=== PATIENT | female | born 1985 | race Caucasian/White ===

== ENCOUNTER 2016-09-29 12:38 | Emergency (ER) | payer BC ==
[~2016-09-29] VITALS: Ht 167.6 cm; Wt 61.2 kg
[~2016-09-29 12:38] MED LIST: ABILIFY5 MG ORAL; ALBUTEROL SULF8.5 GM INH; ALBUTEROL2.5 MG/3 M INH; AMOXICILLIN500 MG ORAL; AZITHROMYCIN250 MG ORAL; BACITRACIN15 GM TOPIC; BACTRIM10 ML PO; BIAXIN500 MG ORAL; CEPHALEXIN500 MG ORAL; CIPRO500 MG PO; DIFLUCAN100 MG ORAL; DIPHENHYDRAMINE25 M1 ORAL; ENEMA TWIN PAC133 ML RC; GABAPENTIN300 MG ORAL; IBUPROFEN600 MG ORAL; KEFLEX500 MG ORAL; LEVOFLOXACIN500 MG ORAL; MACROBID100 MG ORAL; MILK OF MA400 MG/51 ORAL; NAPROSYN500 M1 ORAL; NORCO 5-325 TA1 EACH ORAL; PAROXETINE HCL20 MG PO; PREDNISONE20 MG ORAL; PROAIR HFA8.5 GM INH; PROPRANOLOL HCL80 M2 PO; QUETIAPINE FUM200 MG ORAL; TOPIRAMATE100 MG ORAL; VYVANSE50 MG ORAL; WELLBUTRIN75 MG ORAL; ZITHROMAX250 MG ORAL; ZOFRAN4 M1 ORAL
[2016-09-29 12:43] VITALS: BP 113/69
[2016-09-29] MEDS ORDERED: Albuterol ud Inhalation HHN ONE (13:00)
[2016-09-29] MEDS ORDERED: Ipratropium 0.02% Inh Soln 2.5ml UD HHN ONE (13:00)
--- NOTE | 2016-09-29 13:04 | Emergency Room Report ---
History of Present Illness General Chief Complaint: Flu Like Symptoms Source: Patient (STEPHANIE VENTURA) Present Illness HPI The patient is a 31-year-old female who has medical history presenting for subjective fevers, cough, and wheezing which began 5 days prior. The patient was seen by urgent care on the day the symptoms began and was prescribed prednisone and a Z-Mehdi which the patient states did not help. The patient was also tested for strep throat at that time which was negative. Pt denies N, V, rash, night sweats, recent travel (STEPHANIE VENTURA.Tabitha) Allergies: Coded Allergies: No Known Allergies (Unverified , 01/07/14) Patient History Past Medical History: see triage record Pertinent Family History: none Last Menstrual Period: 09/10/2016 Now: No Reviewed Nursing Documentation: PMH: Agreed, PSxH: Agreed (STEPHANIE VENTURA) Nursing Documentation-PMH Past Medical History: No History, Except For Hx Cardiac Problems: Yes - SVT Hx Asthma: Yes History Of Psychiatric Problem: Yes - depression, PTSD Hx Neurological Problems: No (STEPHANIE VENTURA P.AMushtaq) Review of Systems All Other Systems: negative except mentioned in HPI (STEPHANIE VENTURA.Tabitha) Physical Exam Vital Signs Date Time Temp Pulse Resp B/P Pulse Ox O2 Delivery O2 Flow Rate FiO2 09/29/16 12:43 98.2 87 18 113/69 95 Room Air Sp02 EP Interpretation: reviewed, normal General Appearance: no apparent distress, alert, GCS 15, non-toxic Head: normocephalic, atraumatic Eyes: bilateral eye PERRL, bilateral eye normal inspection ENT: hearing grossly normal, normal pharynx, no angioedema, normal voice, TMs + canals normal, uvula midline, moist mucus membranes Neck: full range of motion, supple/symm/no masses Respiratory: chest non-tender, no respiratory distress, speaking full sentences , wheezing - diffuse Cardiovascular #1: regular rate, rhythm, no edema Cardiovascular #2: 2+ carotid (R), 2+ carotid (L), 2+ radial (R), 2+ radial (L) , 2+ dorsalis pedis (R), 2+ dorsalis pedis (L) Gastrointestinal: normal bowel sounds, non tender, soft, non-distended, no guarding, no rebound Rectal: deferred Genitourinary: normal inspection, no CVA tenderness Musculoskeletal: back normal, gait/station normal, normal range of motion, non- tender Neurologic: alert, oriented x3, responsive, motor strength/tone normal, sensory intact, speech normal Psychiatric: judgement/insight normal, memory normal, mood/affect normal, no suicidal/homicidal ideation Reflexes: 3+ bicep (R), 3+ bicep (L), 3+ tricep (R), 3+ tricep (L), 3+ knee (R) , 3+ knee (L) Skin: normal color, no rash, warm/dry, well hydrated Lymphatic: no adenopathy (STEPHANIE VENTURA P.A.) Medical Decision Making PA Attestation Dr. Almonte is my supervising physician. Patient management was discussed with my supervising physician (STEPHANIE VENTURA PMushtaqAMushtaq) Diagnostic Impression: Primary Impression: Bronchitis ER Course The patient is a 31-year-old female who has medical history presenting for subjective fevers, cough, and wheezing which began 5 days prior. Differential diagnosis include but not limited to bronchitis, pharyngitis, sinusitis, pneumonia, rhinitis PE: Vitals WNL. NAD. HEENT exam is unremarkable. Tonsils have been removed. Uvula midline. No cervical lymphadenopathy. Lungs: Diffuse bilateral wheezing The patient was given a breathing treatment and states that she is feeling better. Lung sounds have increased. CXR is unremarkable. The patient will be discharged home with a prescription for cough medication, albuterol, and a five-day course of steroids. ER precautions are given (STEPHANIE VENTURA P.A.) ER Course Scribe documentation reviewed by me and is accurate. (Rodolfo Almonte M.D.) Chest X-Ray Diagnostic Results EP Interpretation: Yes Findings: no consolidation, no effusion, no pneumothorax, no acute cardiopulmonary disease Number of Views: 1 PA Scribe Text I am acting as scribe for my supervising physician. My supervising physician's interpretation of the chest xrays are there is no consolidation, no effusion, no acute cardiopulmonary disease, no pneumothorax (STEPHANIE VENTURA P.A.) Last Vital Signs Date Time Temp Pulse Resp B/P Pulse Ox O2 Delivery O2 Flow Rate FiO2 09/29/16 12:55 88 16 Room Air 09/29/16 12:43 98.2 113/69 95 Status: improved (STEPHANIE VENTURA P.A.) Disposition: HOME, SELF-CARE Condition: Improved Scripts Albuterol Sulfate* (PROAIR HFA*) 8.5 Gm Hfa.aer.ad 2 PUFFS INH Q6H, #8.5 GM 0 Refills Prov: STEPHANIE VENTURA P.A. 09/29/16 Prednisone (Prednisone) 20 Mg Tablet 20 MG PO DAILY for 5 Days, #5 TAB Prov: TERLISAANSTEPHANIE P.A. 09/29/16 Guaifenesin/Dextromethorphan (Robitussin Cough-Chest Dm Liq) 118 Ml Liquid 118 ML PO Q4HR, #118 ML Prov: STEPHANIE VENTURA P.A. 09/29/16 STEPHANIE VENTURA P.A. Sep 29, 2016 13:04 Rodolfo Almonte M.D. Oct 05, 2016 15:35
--- NOTE | 2016-09-29 14:02 | Diagnostic Imaging Report ---
Indication: Cough Comparison: 09/22/14 A single view chest radiograph was obtained. Findings: Cardiomediastinal appearance is within normal limits for age. Pulmonary vascularity is appropriate. The diaphragmatic contour is smooth and costophrenic angles are sharp. No pleural effusions are identified. The bones are unremarkable. Impression: No acute findings
[2016-09-29] MEDS ORDERED: PROAIR HFA8.5 GM INH (14:03)
[2016-09-29] MEDS ORDERED: ROBITUSSIN COU118 M4 PO (14:03)
[2016-09-29] MEDS ORDERED: PREDNISONE20 M1 PO (14:03)
[2016-09-29 14:15] VITALS: BP 112/72
== END 2016-09-29 14:14 | disposition home or self-care (01) ==
LOC: EMR 14:05
DX: J45.909 Unspecified asthma, uncomplicated (principal)
CPT/HCPCS: 71010; 94640; 94664; 99283

== ENCOUNTER 2016-10-03 12:59 | Emergency (ER) | payer BC ==
[~2016-10-03] VITALS: Ht 167.6 cm; Wt 61.2 kg
[~2016-10-03 12:59] MED LIST changes: +PREDNISONE20 M1 PO; +ROBITUSSIN COU118 M4 PO
[2016-10-03] MEDS ORDERED: AMOXICILLIN500 MG ORAL (13:39)
[2016-10-03] MEDS ORDERED: PSEUDOEPHEDRINE60 MG PO (13:39)
[2016-10-03 13:54] VITALS: BP 99/63
[2016-10-03 13:56] VITALS: BP 99/63
--- NOTE | 2016-10-03 15:33 | Emergency Room Report ---
History of Present Illness General Chief Complaint: Upper Respiratory Illness Source: Patient Present Illness HPI The patient is a 31-year-old female who denies any medical history presenting for 2 weeks of productive cough, sore throat, and subjective fever. Pt denies any pain. The patient states that she was seen for these symptoms before and was treated with steroids and a Z-Mehdi which have not helped. Pt denies N, V, night sweats, abd pain, CARVAJAL, neck stiffness, rash Allergies: Coded Allergies: No Known Allergies (Unverified , 01/07/14) Patient History Past Medical History: see triage record Pertinent Family History: none Last Menstrual Period: 09/05/16 Now: No Reviewed Nursing Documentation: PMH: Agreed, PSxH: Agreed Nursing Documentation-PMH Past Medical History: No History, Except For Hx Cardiac Problems: Yes - SVT Hx Asthma: Yes Hx Neurological Problems: No Review of Systems All Other Systems: negative except mentioned in HPI Physical Exam Vital Signs Date Time Temp Pulse Resp B/P Pulse Ox O2 Delivery O2 Flow Rate FiO2 10/03/16 13:14 98.1 75 16 99/63 97 Room Air Sp02 EP Interpretation: reviewed, normal General Appearance: no apparent distress, alert, GCS 15, non-toxic Head: normocephalic, atraumatic Eyes: bilateral eye PERRL, bilateral eye normal inspection ENT: hearing grossly normal, no angioedema, normal voice, TMs + canals normal, uvula midline, moist mucus membranes, tonsillar swelling, pharyngeal erythema Neck: full range of motion, supple, supple/symm/no masses Respiratory: chest non-tender, lungs clear, normal breath sounds, speaking full sentences Cardiovascular #1: regular rate, rhythm, no edema Gastrointestinal: normal bowel sounds, non tender, soft, non-distended, no guarding, no rebound Musculoskeletal: back normal, gait/station normal, normal range of motion, non- tender Neurologic: alert, oriented x3, responsive, motor strength/tone normal, sensory intact, speech normal Psychiatric: judgement/insight normal, memory normal, mood/affect normal, no suicidal/homicidal ideation Skin: normal color, no rash, warm/dry, well hydrated Lymphatic: adenopathy - cervical Medical Decision Making PA Attestation Dr. Plunkett is my supervising physician. Patient management was discussed with my supervising physician Diagnostic Impression: Primary Impression: Pharyngitis, acute ER Course The patient is a 31-year-old female who denies any medical history presenting for 2 weeks of productive cough, sore throat, and subjective fever. Differential diagnosis include but not limited to bronchitis, pharyngitis, sinusitis, pneumonia, rhinitis PE: Afebrile. NAD. HEENT: There is bilateral tonsillar edema and oral pharyngeal erythema. Positive cervical lymphadenopathy. There is nasal congestion noted Otherwise exam unremarkable. The patient will be discharged home with a prescription for amoxicillin and Sudafed. ER precautions are given Last Vital Signs Date Time Temp Pulse Resp B/P Pulse Ox O2 Delivery O2 Flow Rate FiO2 10/03/16 13:56 98.1 65 16 99/63 97 Room Air Status: improved Disposition: HOME, SELF-CARE Condition: Improved Scripts Pseudoephedrine Hcl* (SUDAFED*) 60 Mg Tablet 60 MG PO Q6H, #20 TAB Prov: STEPHANIE VENTURA P.A. 10/03/16 Amoxicillin* (AMOXIL*) 500 Mg Capsule 500 MG ORAL Q12HR, #20 CAP Prov: STEPHANIE VENTURA P.A. 10/03/16 Patient Instructions: Upper Respiratory Infection, Adult Additional Instructions: I discussed my findings with the patient. All questions and concerns have been answered. Treatment and medication compliance have been addressed. I advised the patient that they need to follow up with PMD in 3-5 days. Return to ED if pain remains or worsens, cough worsens or remains, you notice blood in your sputum, you notice wheezing, you experience a fever, or if needed for any reason. Patient verbalized understanding of discharge instructions. STEPHANIE VENTURA Oct 03, 2016 15:33
== END 2016-10-03 13:56 | disposition home or self-care (01) ==
LOC: EMR 13:30
DX: J02.9 Acute pharyngitis, unspecified (principal); J45.909 Unspecified asthma, uncomplicated
CPT/HCPCS: 99284

== ENCOUNTER 2016-10-26 20:34 | Emergency (ER) | payer BC ==
[~2016-10-26] VITALS: Ht 167.6 cm; Wt 61.2 kg
[~2016-10-26 20:34] MED LIST changes: +PSEUDOEPHEDRINE60 MG PO
[2016-10-26 21:15] VITALS: BP 107/70
[2016-10-26] MEDS ORDERED: BUPROPION XL300 MG ORAL (21:18)
--- NOTE | 2016-10-30 13:15 | Emergency Room Report ---
History of Present Illness General Chief Complaint: Medication Refill Source: Patient Present Illness HPI Patient is a 31-year-old female presented for a medication refill. Patient had recently run out of her medications. Patient had been taking Wellbutrin. She reports having a appointment with her physician in the next few days. Patient stated that she needed prescription for some of this medication. She denied any . She denied other complaints. Allergies: Coded Allergies: No Known Allergies (Unverified , 01/07/14) Patient History Past Medical History: see triage record Last Menstrual Period: Sep Reviewed Nursing Documentation: PMH: Agreed, PSxH: Agreed Nursing Documentation-PMH Hx Cardiac Problems: Yes - SVT Hx Asthma: Yes History Of Psychiatric Problem: Yes Hx Neurological Problems: No Review of Systems All Other Systems: negative except mentioned in HPI Physical Exam Vital Signs Date Time Temp Pulse Resp B/P Pulse Ox O2 Delivery O2 Flow Rate FiO2 10/26/16 20:54 97.9 75 16 107/70 96 Room Air General Appearance: well appearing, no apparent distress, alert, GCS 15 Head: normocephalic, atraumatic ENT: hearing grossly normal, normal voice Neck: full range of motion, supple Respiratory: no respiratory distress, speaking full sentences Gastrointestinal: normal inspection Musculoskeletal: no calf tenderness Neurologic: normal inspection, alert, oriented x3, responsive, 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 The patient was given prescription for her Wellbutrin.The patient is advised to follow up with primary care doctor for further medications. Patient is advised to return if any worsening condition or if any changes in status that are concerning. Last Vital Signs Date Time Temp Pulse Resp B/P Pulse Ox O2 Delivery O2 Flow Rate FiO2 10/26/16 21:15 97.9 87 16 107/70 96 Room Air Status: improved Disposition: HOME, SELF-CARE Condition: Stable Scripts Bupropion Hcl* (WELLBUTRIN*) 300 Mg Tab.er.24h 300 MG ORAL DAILY, #14 TAB 0 Refills Prov: Rogelio Plunkett 10/26/16 Referrals: NON PHYSICIAN (PCP) Patient Instructions: Medicine Refill at the Emergency Department Rogelio Plunkett Oct 30, 2016 13:15
== END 2016-10-26 21:30 | disposition home or self-care (01) ==
LOC: EMR 21:20
DX: Z76.0 Encounter for issue of repeat prescription (principal); Z87.09 Personal history of other diseases of the respiratory system
CPT/HCPCS: 99283

== ENCOUNTER 2017-02-15 09:27 | Emergency (ER) | payer BC ==
[~2017-02-15] VITALS: Ht 167.6 cm; Wt 61.2 kg
[~2017-02-15 09:27] MED LIST changes: +BUPROPION XL300 MG ORAL
[2017-02-15 09:40] VITALS: BP 121/78
--- NOTE | 2017-02-15 09:56 | Emergency Room Report ---
History of Present Illness General Chief Complaint: Pain Source: Patient Present Illness HPI [id number] presents with 3 days right shoulder pain after wrestling with friend's child. C/o pain to entire shoulder joint. Reduced ROM d/t pain but ROM is otherwise intact. No previous shoulder dislocation. 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 Took ibuprofen last night with some improvement. Allergies: Coded Allergies: No Known Allergies (Unverified , 01/07/14) Patient History Past Medical History: none Past Surgical History: none Pertinent Family History: none Social History: Denies: alcohol use, drug use, smoking Last Menstrual Period: 01/20/17 Now: No : 0 Para: 0 Immunizations: UTD Reviewed Nursing Documentation: PMH: Agreed, PSxH: Agreed Nursing Documentation-PMH Past Medical History: No History, Except For Hx Cardiac Problems: Yes - SVT Hx Asthma: Yes Hx Neurological Problems: No Review of Systems All Other Systems: negative except mentioned in HPI Physical Exam Vital Signs Date Time Temp Pulse Resp B/P Pulse Ox O2 Delivery O2 Flow Rate FiO2 02/15/17 09:40 98.1 80 18 121/78 100 Room Air Sp02 EP Interpretation: reviewed, normal General Appearance: normal inspection, well appearing, no apparent distress, alert, GCS 15, non-toxic Head: normocephalic, atraumatic Eyes: bilateral eye EOMI, bilateral eye PERRL ENT: normal ENT inspection, hearing grossly normal, normal voice Neck: normal inspection, full range of motion, supple, no bony tend Respiratory: normal inspection, lungs clear, normal breath sounds, no rhonchi, no respiratory distress, no retraction, no accessory muscle use, no wheezing Cardiovascular #1: regular rate, rhythm, no edema Gastrointestinal: normal inspection, normal bowel sounds, non tender, soft, no guarding, no hernia Genitourinary: no CVA tenderness Musculoskeletal: normal inspection, back normal, normal range of motion, Cesia' s Sign negative, other - Right shoulder: mild ttp distal clavicle and shoulder joint in general. No actual point ttp. 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, motor strength/tone normal, speech normal Psychiatric: normal inspection, judgement/insight normal, mood/affect normal Skin: normal inspection, normal color, no rash Lymphatic: normal inspection Medical Decision Making Diagnostic Impression: Primary Impression: Right shoulder pain Qualified Codes: M25.511 - Pain in right shoulder ER Course No dislocation or fracture Likely soft tissue injury vs bruise No obious clinical tendon involvement Rx provided PMD referral for Ortho if no improvement Other X-Ray Diagnostic Results Other X-Ray Diagnostic Results : X-Ray Ordered: right shoulder EP Interpretation: Yes Findings: no fractures, no dislocation, no soft tissue swelling Number of Views: 3 Last Vital Signs Date Time Temp Pulse Resp B/P Pulse Ox O2 Delivery O2 Flow Rate FiO2 02/15/17 09:40 98.0 80 18 121/78 100 Room Air Status: improved Disposition: HOME, SELF-CARE Scripts Methocarbamol* (ROBAXIN-750*) 750 Mg Tablet 750 MG PO TID for For Pain for 7 Days, #30 TAB 0 Refills Prov: AUDI ANDERSON M.D. 02/15/17 Ibuprofen* (MOTRIN*) 600 Mg Tablet 600 MG ORAL THREE TIMES A DAY for For Pain for 7 Days, #30 TAB 0 Refills Prov: AUDI ANDERSON M.D. 02/15/17 AUDI ANDERSON M.D. February 15, 2017 09:56
[2017-02-15] MEDS ORDERED: Ketorolac 60mg Inj IM ONE (10:00)
[2017-02-15] MEDS ORDERED: ROBAXIN-750750 MG PO (10:17)
[2017-02-15] MEDS ORDERED: IBUPROFEN600 MG ORAL (10:17)
[2017-02-15 10:40] VITALS: BP 124/84
--- NOTE | 2017-02-15 10:56 | Diagnostic Imaging Report ---
Indication: PAIN, status post fall Technique: 3 views of the right shoulder Comparison: none Findings: No acute fractures. No dislocations. The joint spaces are preserved Impression:Negative
== END 2017-02-15 10:42 | disposition home or self-care (01) ==
LOC: EMR 10:18
DX: M25.511 Pain in right shoulder (principal); J45.909 Unspecified asthma, uncomplicated
CPT/HCPCS: 96372; 99284

== ENCOUNTER 2017-03-11 14:05 | Emergency (ER) | payer BC ==
[~2017-03-11] VITALS: Ht 182.9 cm; Wt 61.2 kg
[~2017-03-11 14:05] MED LIST changes: +ROBAXIN-750750 MG PO
[2017-03-11 14:33] VITALS: BP 101/5
[2017-03-11] MEDS ORDERED: GABAPENTIN600 MG ORAL (15:13)
[2017-03-11] MEDS ORDERED: TOPAMAX25 MG ORAL (15:13)
[2017-03-11] MEDS ORDERED: BUPROPION XL300 MG ORAL (15:13)
[2017-03-11] MEDS ORDERED: PAXIL CR37.5 MG ORAL (15:13)
[2017-03-11 15:29] VITALS: BP 101/5
--- NOTE | 2017-03-11 16:58 | Emergency Room Report ---
History of Present Illness General Chief Complaint: Medication Refill Present Illness HPI 31-year-old female presents emergency department requesting medication refill. Patient states she was unable to obtain refill appointment with her doctor until March 31. Patient states she has a history of PTSD, depression, drug use and other psychiatric condition. Patient states she previously was taken off Abilify and has been on Paxil, gabapentin x2 years and Wellbutrin with Topamax times over 4 years. Patient states ultimately her: The to DC all medications and she wants to titrate down. Patient denies recent drug use she denies SI or HI. Patient denies history of siobhan or recent panic/anxiety attacks. Patient denies previous suicide attempts. 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 denies rashes, abdominal pain, or . Denies CP, Palpitations, LOC, AMS, dizziness, Changes in Vision, Sensation, paresthesias, or a sudden severe headache. Allergies: Coded Allergies: No Known Allergies (Unverified , 01/07/14) Patient History Past Medical History: see triage record Past Surgical History: none Pertinent Family History: none Last Menstrual Period: 02/14/17 Now: No Reviewed Nursing Documentation: PMH: Agreed, PSxH: Agreed Nursing Documentation-PMH Hx Cardiac Problems: Yes - SVT Hx Asthma: Yes History Of Psychiatric Problem: Yes - Depression; PTSD Hx Neurological Problems: No Review of Systems All Other Systems: negative except mentioned in HPI Physical Exam Vital Signs Date Time Temp Pulse Resp B/P Pulse Ox O2 Delivery O2 Flow Rate FiO2 03/11/17 14:21 62 16 101/5 97 Room Air Sp02 EP Interpretation: reviewed, normal General Appearance: no apparent distress, alert, GCS 15, non-toxic Head: normocephalic, atraumatic Eyes: bilateral eye PERRL, bilateral eye normal inspection ENT: hearing grossly normal, normal pharynx, no angioedema, normal voice Neck: full range of motion, supple/symm/no masses Respiratory: lungs clear, normal breath sounds, speaking full sentences Cardiovascular #1: regular rate, rhythm, no edema Musculoskeletal: back normal, gait/station normal, normal range of motion, non- tender Neurologic: alert, oriented x3, responsive, motor strength/tone normal, sensory intact, speech normal Psychiatric: judgement/insight normal, memory normal, mood/affect normal, no suicidal/homicidal ideation, no delusions Skin: normal color, no rash, warm/dry, well hydrated Lymphatic: no adenopathy Medical Decision Making PA Attestation Dr. alves is my supervising Physician whom patient management has been discussed with. Diagnostic Impression: Primary Impression: Encounter for medication refill ER Course 31-year-old female presents emergency department requesting medication refill. Patient states she was unable to obtain refill appointment with her doctor until March 31. Patient states she has a history of PTSD, depression, drug use and other psychiatric condition. Patient states she previously was taken off Abilify and has been on Paxil, gabapentin x2 years and Wellbutrin with Topamax times over 4 years. Patient states ultimately her: The to DC all medications and she wants to titrate down. Patient denies recent drug use she denies SI or HI. Patient denies history of siobhan or recent panic/anxiety attacks. Patient denies previous suicide attempts. 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 denies rashes, abdominal pain, or . Ddx considered but are not limited to: drug seeking, OD, manic episode Vital signs: are WNL, pt. is afebrile H&PE are most consistent with need for medication refill. ORDERS: none required at this time, the diagnosis is clinical ED INTERVENTIONS: - Review of medications with patient in addition to plan to decrease the dosage of gabapentin. Discussed with patient that to the medication she is requesting have been known to be abusable and I am limiting the clonidine which I will prescribe. Also discussed with patient about [facility] and not she can be evaluated and have psychiatric medication management performed there. Discussed with patient that that is the more appropriate facility for medication refills as they specialize in psychiatric conditions, and are easily accessible. DISCHARGE: At this time pt. is stable for d/c to home. Will provide printed patient care instructions, and any necessary prescriptions. Care plan and follow up instructions have been discussed with the patient prior to discharge. Last Vital Signs Date Time Temp Pulse Resp B/P Pulse Ox O2 Delivery O2 Flow Rate FiO2 03/11/17 15:29 16 101/5 97 Room Air 03/11/17 14:21 62 Disposition: HOME, SELF-CARE Condition: Stable Scripts Paroxetine Hcl (PAXIL CR) 37.5 Mg Tab.er.24h 37.5 MG ORAL DAILY for 21 Days, #21 TAB 0 Refills Prov: Gita Dunaway 03/11/17 Topiramate* (TOPAMAX*) 25 Mg Tablet 50 MG ORAL DAILY for 21 Days, #42 TAB Prov: Gita Dunaway 03/11/17 Gabapentin* (GABAPENTIN*) 600 Mg Tablet 600 MG ORAL BID for 21 Days, #42 TAB Prov: Gita Dunaway 03/11/17 Bupropion Hcl* (WELLBUTRIN*) 300 Mg Tab.er.24h 300 MG ORAL DAILY for 21 Days, #21 TAB 0 Refills Prov: Gita Dunaway 03/11/17 Referrals: NON PHYSICIAN (PCP) Patient Instructions: Medicine Refill at the Emergency Department Additional Instructions: Take medications as directed. Follow up with PCP in 3-5 days Return sooner to ED if new symptoms occur, or current symptoms become worse. review [facility] info for follow up - Please note that this Emergency Department Report was dictated using [employer] man technology software, occasionally this can lead to erroneous entry secondary to interpretation by the dictation equipment. Gita Dunaway Mar 11, 2017 16:58
== END 2017-03-11 15:30 | disposition home or self-care (01) ==
LOC: EMR 15:06
DX: Z76.0 Encounter for issue of repeat prescription (principal); F43.10 Post-traumatic stress disorder, unspecified; F32.9 Major depressive disorder, single episode, unspecified; J45.909 Unspecified asthma, uncomplicated
CPT/HCPCS: 99284

== ENCOUNTER 2017-11-01 01:05 | Emergency (ER) | payer BC ==
[~2017-11-01] VITALS: Ht 167.6 cm; Wt 61.2 kg
[~2017-11-01 01:05] MED LIST changes: +GABAPENTIN600 MG ORAL; +PAXIL CR37.5 MG ORAL; +TOPAMAX25 MG ORAL
[2017-11-01 01:21] VITALS: BP 116/73
[2017-11-01] MEDS ORDERED: Ketorolac 60mg Inj IM ONE (01:45)
[2017-11-01] MEDS ORDERED: IBUPROFEN600 MG ORAL (02:02)
[2017-11-01] MEDS ORDERED: MEDROL4 M1 PO (02:02)
--- NOTE | 2017-11-01 02:03 | Emergency Room Report ---
History of Present Illness General Chief Complaint: Back Pain-No Injury Source: Patient Present Illness HPI Is a 32-year-old female with history opioid abuse currently sober. She also has a history of back pain but pain worse in the last week. She's been seeing a chiropractor. Denied chest pain going down her right leg. Symptom foot felt numb. Denies any fever chills denies any trauma. No incontinence of bowel or urine. Worse in certain position. Pain is 8/10. Allergies: Coded Allergies: No Known Allergies (Unverified , 01/07/14) Patient History Past Medical History: see triage record, old chart reviewed Past Surgical History: none Pertinent Family History: none Social History: Denies: smoking Last Menstrual Period: Sep Now: No Immunizations: other Reviewed Nursing Documentation: PMH: Agreed, PSxH: Agreed Nursing Documentation-PMH Hx Cardiac Problems: Yes - SVT Hx Asthma: Yes Hx Neurological Problems: No Review of Systems Eye: Denies: eye pain, blurred vision ENT: Denies: ear pain, nose congestion, throat swelling Respiratory: Denies: cough, shortness of breath Cardiovascular: Denies: chest pain, palpitations Gastrointestinal: Denies: abdominal pain, diarrhea, nausea, vomiting Musculoskeletal: Reports: back pain, Denies: joint pain Skin: Denies: rash Neurological: Denies: headache, numbness Endocrine: Denies: increased thirst, increased urine Hematologic/Lymphatic: Denies: easy bruising All Other Systems: negative except mentioned in HPI Physical Exam Vital Signs Date Time Temp Pulse Resp B/P (MAP) Pulse Ox O2 Delivery O2 Flow Rate FiO2 11/01/17 01:09 98.1 85 16 116/73 95 vitals normal Sp02 EP Interpretation: reviewed, normal General Appearance: well appearing, no apparent distress, alert Head: normocephalic, atraumatic Eyes: bilateral eye PERRL, bilateral eye EOMI ENT: hearing grossly normal, normal pharynx Neck: full range of motion, supple, no meningismus Respiratory: chest non-tender, lungs clear, normal breath sounds Cardiovascular #1: regular rate, rhythm, no murmur Gastrointestinal: normal bowel sounds, non tender, no mass, no organomegaly, no bruit, non-distended Musculoskeletal: back normal - Mild tenderness to the right lower lumbar paraspinous muscle., gait/station normal, normal range of motion Neurologic: alert, oriented x3 Psychiatric: mood/affect normal Skin: warm/dry Medical Decision Making Diagnostic Impression: Primary Impression: Back pain Qualified Codes: M54.41 - Lumbago with sciatica, right side ER Course Patient with sciatica. Most likely secondary to pinched nerve from herniated discs or stenosis. No evidence of cauda equina syndrome, spinal after abscess or neoplastic process. Patient asked that I do not prescribe narcotics. Last Vital Signs Date Time Temp Pulse Resp B/P (MAP) Pulse Ox O2 Delivery O2 Flow Rate FiO2 11/01/17 01:21 98.1 85 16 116/73 95 Status: improved Disposition: HOME, SELF-CARE Condition: Stable Scripts Methylprednisolone (MEDROL) 4 Mg Tab.ds.pk 4 MG PO DAILY, #1 PACK Prov: CLIFF CHEEMA M.D. 11/01/17 Ibuprofen* (MOTRIN*) 600 Mg Tablet 600 MG ORAL THREE TIMES A DAY, #30 TAB 0 Refills Prov: CLIFF CHEEMA M.D. 11/01/17 Referrals: NOT CHOSEN IPA/,REFERRING (PCP) Patient Instructions: Sciatica Additional Instructions: Followup with your DrMushtaq in 7 days. If symptoms don't improve after physical therapy, you may need an MRI. Return if symptom worsen. CLIFF CHEEMA M.D. Nov 01, 2017 02:02
[2017-11-01 02:05] VITALS: BP 116/73
== END 2017-11-01 02:05 | disposition home or self-care (01) ==
LOC: EMR 01:25
DX: M54.5 Low back pain (principal); J45.909 Unspecified asthma, uncomplicated
CPT/HCPCS: 96372; 99283; J7512

== ENCOUNTER 2017-11-16 09:42 | Emergency (ER) | payer BC ==
[~2017-11-16] VITALS: Ht 167.6 cm; Wt 61.2 kg
[~2017-11-16 09:42] MED LIST changes: +MEDROL4 M1 PO
[2017-11-16] MEDS ORDERED: GABAPENTIN600 MG ORAL (09:56)
[2017-11-16] MEDS ORDERED: PAXIL20 MG ORAL (09:56)
[2017-11-16] MEDS ORDERED: Ketorolac 30mg Inj IM ONE (10:15)
[2017-11-16] MEDS ORDERED: Methocarbamol 750mg tab ORAL ONE (10:15)
[2017-11-16] MEDS ORDERED: ROBAXIN-750750 MG PO (10:17)
--- NOTE | 2017-11-16 10:19 | Emergency Room Report ---
History of Present Illness General Chief Complaint: Pain Source: Patient Present Illness HPI 32-year-old female, history of chronic back pain since 6 months ago p/w back pain for worse with the last 2 weeks. Pain is localized to right lower back, sharp in nature, radiating down leg. Movement worsens pain. There are no alleviating factors. Patient took pain medications with minimal relief. Patient saw her chiropractor who thinks that she might have a pinched nerve Patient has experienced this similar pain in the past. Denies trauma. Denies lower extremity weakness/numbness, no bowel/bladder retention or incontinence, saddle anesthesia. Denies fever, chills, abdominal pain, n/v, dysuria/hematuria. Patient states that she has history of IV drug abuse 2 years ago Allergies: Coded Allergies: No Known Allergies (Unverified , 01/07/14) Patient History Past Medical History: see triage record Past Surgical History: none Pertinent Family History: none Last Menstrual Period: 11/06/17 Now: No Reviewed Nursing Documentation: PMH: Agreed, PSxH: Agreed Nursing Documentation-PMH Hx Cardiac Problems: Yes - SVT Hx Asthma: Yes Hx Neurological Problems: No Review of Systems All Other Systems: negative except mentioned in HPI Physical Exam Vital Signs Date Time Temp Pulse Resp B/P (MAP) Pulse Ox O2 Delivery O2 Flow Rate FiO2 11/16/17 09:51 97.7 83 18 97/61 93 Room Air 97.7 Sp02 EP Interpretation: reviewed, normal General Appearance: alert, GCS 15, non-toxic, moderate distress Head: normocephalic, atraumatic Eyes: bilateral eye normal inspection, bilateral eye PERRL, bilateral eye EOMI ENT: normal ENT inspection, normal pharynx, normal voice, moist mucus membranes Neck: normal inspection, full range of motion, supple Respiratory: normal inspection, lungs clear, normal breath sounds, no respiratory distress, no retraction, no wheezing, speaking full sentences, chest symmetrical Cardiovascular #1: normal inspection, regular rate, rhythm, no edema, normal capillary refill Cardiovascular #2: 2+ radial (R), 2+ radial (L) Gastrointestinal: normal inspection, non tender, soft, non-distended, no guarding Musculoskeletal: other - Right lower lumbar paraspinal tenderness, no midline tenderness, full range of motion all extremities Neurologic: normal inspection, alert, oriented x3, responsive, motor strength/ tone normal, sensory intact, normal gait, speech normal Psychiatric: normal inspection, judgement/insight normal, memory normal Skin: normal inspection, normal color, no rash, warm/dry, well hydrated, normal turgor Medical Decision Making Diagnostic Impression: Primary Impression: Chronic lower back pain ER Course 32-year-old female p/w back pain DDX: Likely musculoskeletal back pain vs. muscular strain vs. sciatica Lumbar fracture is unlikely given patients age, no midline tenderness, no history of trauma, and that patient is ambulatory. Therefore, at this time no imaging is indicated Serious diagnoses such as cord compression, epidural abscess is unlikely in this patient given the clinical scenario and abscess of neurological symptoms or findings. Patient appears nontoxic. Plan: Toradol, robaxin ER course: Patient has remained nontoxic appearing and ambulatory in the ED. Pain improved w/ medications Disposition: Patient will be discharged to home with prescription of robaxin. Patient cautioned of the effects of robaxin including possible impairment of physical or mental abilities. Patient was instructed to refrain from operating machinery or driving. Patient is also cautioned on the GI effects of motrin and to take sparingly. Patient verbalized understanding. Strict precautions discussed with patient on when to emergently return to the ED which includes severe/worsening back pain, leg weakness/numbness, urinary retention/incontinence, fever or chills, which may indicate severe illness. Patient is to follow up with their PMD within 5 days. Patient agrees with plan. Please note that this Emergency Department Report was dictated using [employer] ambulatory analyst technology software, occasionally this can lead to erroneous entry secondary to interpretation by the dictation equipment. Last Vital Signs Date Time Temp Pulse Resp B/P (MAP) Pulse Ox O2 Delivery O2 Flow Rate FiO2 11/16/17 09:51 97.7 83 18 97/61 93 Room Air 97.7 Disposition: HOME, SELF-CARE Condition: Improved Scripts Methocarbamol* (ROBAXIN-750*) 750 Mg Tablet 750 MG PO QID, #28 TAB 0 Refills Prov: Ronel Sal M.D. 11/16/17 Patient Instructions: Back Pain, Adult, [id number] Additional Instructions: PLEASE SEE YOUR DOCTOR GET REFERRAL FOR PHYSICAL THERAPY Ronel Sal M.D. Nov 16, 2017 10:19
[2017-11-16 10:40] VITALS: BP 107/68
== END 2017-11-16 10:40 | disposition home or self-care (01) ==
LOC: EMR 10:03
DX: M54.5 Low back pain (principal); G89.29 Other chronic pain; J45.909 Unspecified asthma, uncomplicated
CPT/HCPCS: 96372; 99284; J1885

== ENCOUNTER 2018-05-18 14:32 | Emergency (ER) | payer BC ==
[~2018-05-18] VITALS: Ht 167.6 cm; Wt 63.5 kg
[~2018-05-18 14:32] MED LIST changes: +PAXIL20 MG ORAL
[2018-05-18 14:46] VITALS: BP 97/60
[2018-05-18 14:47] VITALS: BP 97/60
--- NOTE | 2018-05-18 14:48 | Emergency Room Report ---
History of Present Illness General Chief Complaint: Medication Refill Source: Patient, Medical Record Present Illness HPI 33-year-old female percents for medication refill. States she is takes gabapentin 300mg BID and Paxil 10 mg QD with good compliance without adverse reactions with good control for symptoms. States that she's between providers and has been PPO insurance and will be establishing care with a new PCP within the next month. Patient has no additional concerns. Denies any physical complaints at this time. Allergies: Coded Allergies: No Known Allergies (Unverified , 01/07/14) Patient History Past Medical History: see triage record Past Surgical History: none Pertinent Family History: none Last Menstrual Period: 04/15/18 Reviewed Nursing Documentation: PMH: Agreed; PSxH: Agreed Nursing Documentation-PMH Past Medical History: No History, Except For Hx Cardiac Problems: Yes - SVT Hx Asthma: Yes Hx Neurological Problems: No Review of Systems All Other Systems: negative except mentioned in HPI Physical Exam Vital Signs Date Time Temp Pulse Resp B/P (MAP) Pulse Ox O2 Delivery O2 Flow Rate FiO2 05/18/18 14:34 98.2 69 18 97/60 96 Room Air 98.2 Sp02 EP Interpretation: reviewed, normal General Appearance: no apparent distress, alert, GCS 15, non-toxic Head: normocephalic, atraumatic Eyes: bilateral eye normal inspection, bilateral eye PERRL Neck: normal inspection Respiratory: chest non-tender, lungs clear, normal breath sounds, speaking full sentences Cardiovascular #1: regular rate, rhythm, no edema Musculoskeletal: gait/station normal Neurologic: alert, oriented x3, responsive, motor strength/tone normal, sensory intact, speech normal Psychiatric: judgement/insight normal, memory normal, mood/affect normal, no suicidal/homicidal ideation Skin: normal color, no rash, warm/dry, well hydrated Medical Decision Making PA Attestation Dr. Dinero my supervising physician with whom patient management has been discussed with. Diagnostic Impression: Primary Impression: Encounter for medication refill Additional Impressions: Depression Qualified Codes: F33.40 - Major depressive disorder, recurrent, in remission, unspecified Sciatica Qualified Codes: M54.30 - Sciatica, unspecified side ER Course 33-year-old female presents for medication refill for Paxil 10 mg daily and gabapentin 300 mg twice a day. States that she has sciatica but denies any spinal stenosis symptoms as she has no incontinence, saddle anesthesia, or foot drop. Patient has history of depression which is controlled with Paxil 10 mg daily. Patient denies any SI, HI, AH, VH. Please note that this report is being documented using [employer] technology. This can lead to erroneous entry secondary to incorrect interpretation by the dictating instrument. Last Vital Signs Date Time Temp Pulse Resp B/P (MAP) Pulse Ox O2 Delivery O2 Flow Rate FiO2 05/18/18 14:34 98.2 69 18 97/60 96 Room Air 98.2 Status: unchanged Disposition: HOME, SELF-CARE Condition: Stable Scripts Gabapentin* (GABAPENTIN*) 300 Mg Capsule 300 MG ORAL BID for 30 Days, #60 CAP 0 Refills Prov: Maria R Nava 05/18/18 Paroxetine Hcl* (PAXIL*) 10 Mg Tablet 10 MG ORAL DAILY, #30 TAB 0 Refills Prov: Maria R Nava 05/18/18 Patient Instructions: Medicine Refill at the Emergency Department Additional Instructions: Take medications as directed. Patient is advised to establish care with a primary care provider within the next 1-2 weeks. Patient should return should she have any new complaints or have any suicidal or homicidal ideations. Maria R Nava May 18, 2018 14:48
[2018-05-18] MEDS ORDERED: PAROXETINE HCL10 MG ORAL (14:49)
[2018-05-18] MEDS ORDERED: GABAPENTIN300 MG ORAL (14:49)
[2018-05-23] MEDS ORDERED: Docusate 100mg cap ORAL ONE (13:11)
== END 2018-05-18 15:43 | disposition home or self-care (01) ==
LOC: EMR 15:05
DX: F33.40 Major depressive disorder, recurrent, in remission, unspecified (principal); M54.30 Sciatica, unspecified side; Z76.0 Encounter for issue of repeat prescription; J45.909 Unspecified asthma, uncomplicated; I47.1 Supraventricular tachycardia
CPT/HCPCS: 99282

== ENCOUNTER 2018-06-19 14:47 | Emergency (ER) | payer BC ==
[~2018-06-19] VITALS: Ht 167.6 cm; Wt 61.2 kg
[~2018-06-19 14:47] MED LIST changes: +PAROXETINE HCL10 MG ORAL
[2018-06-19 14:54] VITALS: BP 102/63
[2018-06-19] MEDS ORDERED: GABAPENTIN300 MG ORAL (15:19)
[2018-06-19] MEDS ORDERED: PAXIL10 MG ORAL (15:19)
--- NOTE | 2018-06-19 15:19 | Emergency Room Report ---
History of Present Illness General Chief Complaint: Medication Refill Source: Patient Present Illness HPI 33 year-old female patient presents ER requesting medication refill. States that she is taking 10 mg of Paxil daily and 300 mg of gabapentin twice a day for depression symptoms. States that she had an appointment with her regular physician last week but they had to cancel the appointment, states that she reschedule the appointment with 23 of June, however she has run out of medication and needs a few days refill. Denies fever, chest pain, shortness of breath. Denies thoughts of hurting herself or others. patient states that she normally takes her Paxil at night. Allergies: Coded Allergies: No Known Allergies (Unverified , 01/07/14) Patient History Past Medical History: see triage record Last Menstrual Period: 1 week ago Reviewed Nursing Documentation: PMH: Agreed; PSxH: Agreed Nursing Documentation-PMH Past Medical History: No History, Except For Hx Cardiac Problems: Yes - SVT Hx Asthma: Yes History Of Psychiatric Problem: Yes - depression Hx Neurological Problems: No Review of Systems All Other Systems: negative except mentioned in HPI Physical Exam Vital Signs Date Time Temp Pulse Resp B/P (MAP) Pulse Ox O2 Delivery O2 Flow Rate FiO2 06/19/18 14:54 98.2 61 14 102/63 99 Room Air 98.2 Sp02 EP Interpretation: reviewed, normal General Appearance: well appearing, no apparent distress, alert, GCS 15, non- toxic Head: normocephalic, atraumatic Eyes: bilateral eye normal inspection, bilateral eye PERRL ENT: hearing grossly normal, normal pharynx, no angioedema, normal voice, uvula midline, moist mucus membranes Neck: full range of motion Respiratory: lungs clear, normal breath sounds, no rhonchi, no respiratory distress, no accessory muscle use, no wheezing, speaking full sentences Cardiovascular #1: regular rate, rhythm, no edema Musculoskeletal: back normal, digits/nails normal, gait/station normal, normal range of motion, non-tender Neurologic: alert, oriented x3, responsive, motor strength/tone normal, sensory intact Psychiatric: mood/affect normal, no suicidal/homicidal ideation Skin: no rash Medical Decision Making PA Attestation Dr. Almonte is my supervising Physician whom patient management has been discussed with. Diagnostic Impression: Primary Impression: Encounter for medication refill ER Course Pt. presents to the ED requesting prescription refill. Multiple differentials were considered. Vital signs: are WNL, pt. is afebrile ORDERS: PE benign, to auscultation, no abdominal tenderness to palpation, patient nontoxic appearing, in no acute distress. Denies thoughts of hurting herself or others. patient previously seen in the ER for medication refill, advised patient ER cannot really provide medication refills, needs management and prescriptions from primary care provider. Will provide refill of medication until she is able to see her primary care provider appointment scheduled this week and get another refill of medications. patient appears to be organized with her medications and treatment, do not believe patient is a danger to herself or others. Contact primary care provider for further treatment. Informed patient ER cannot provide refills in the future; followup, management and prescription of long-term medications must be performed by primary care provider. DISCHARGE: Rx provided for Paxil 10 mg, #6 Rx provided for Gabapentin 300 mg, #12 At this time pt is stable for d/c to home. Patient is resting comfortably, in no acute distress, nontoxic appearing, talking without difficulty. Patient to take medications as instructed Will provide with patient care instructions and any necessary prescriptions. Care plan and follow-up instructions provided. Patient instructed to follow-up with primary care provider in 3 - 5 days. Patient questions asked and answered. Patient reports understanding and agreement to treatment plan. ER precautions given. Patient instructed to return to ER immediately for any new or worsening of symptoms including but not limited to increasing SOB, persistent fever. - Please note that this Emergency Department Report was dictated using [employer] coil winder technology software, occasionally this can lead to erroneous entry secondary to interpretation by the dictation equipment. Last Vital Signs Date Time Temp Pulse Resp B/P (MAP) Pulse Ox O2 Delivery O2 Flow Rate FiO2 06/19/18 14:54 98.2 61 14 102/63 99 Room Air 98.2 Disposition: HOME, SELF-CARE Condition: Stable Scripts Gabapentin* (GABAPENTIN*) 300 Mg Capsule 300 MG ORAL BID for 6 Days, #12 CAP Prov: Gianfranco Carlson.Tabitha 06/19/18 Paroxetine Hcl* (PAXIL*) 10 Mg Tablet 10 MG ORAL DAILY for 6 Days, #6 TAB 0 Refills Prov: Gianfranco Carlson 06/19/18 Patient Instructions: Medicine Refill at the Emergency Department Additional Instructions: Followup with primary care provider at scheduled appointment and discuss plan for preventing problems with medication refills in the future. Take medications as directed. Patient questions asked and answered. ER precautions given, patient instructed to return to ER immediately for any new or worsening of symptoms. Gianfranco Carlson Jun 19, 2018 15:19
[2018-06-19 16:36] VITALS: BP 115/72
== END 2018-06-19 15:23 | disposition home or self-care (01) ==
LOC: EMR 15:17
DX: Z76.0 Encounter for issue of repeat prescription (principal); F32.9 Major depressive disorder, single episode, unspecified; J45.909 Unspecified asthma, uncomplicated
CPT/HCPCS: 99283

== ENCOUNTER → 2018-09-24 | Emergency (ER) | payer BC ==
[~2018-09-24] VITALS: Ht 167.6 cm; Wt 61.2 kg
[~2018-09-24] MED LIST changes: +PAXIL10 MG ORAL
[2018-09-24 16:58] VITALS: BP 106/71
--- NOTE | 2018-09-24 17:18 | Emergency Room Report ---
History of Present Illness General Chief Complaint: Medication Refill Source: Patient Present Illness HPI 23-year-old female presents to the emergency department complaining of need for medication refill of gabapentin. Patient reports she took her last pill today she states that she regularly he takes it twice a day and is prescribed by her PCP. Patient reports she takes a for history of anxiety and for sleep. she states that she has been titrating down from 600 mg. Patient denies history of seizures or any other significant past medical history. Reports hx of depression for which she takes Paxil for. Denies CP, Palpitations, LOC, AMS, dizziness, Changes in Vision, Sensation, paresthesias, or a sudden severe headache. Denies SI/HI, PSA's, Delusions, Hallucinations, previous psychiatric hospitalizations or trials of psychiatric medications other than Paxil. Allergies: Coded Allergies: No Known Allergies (Unverified , 01/07/14) Patient History Past Medical History: see triage record, psych hx - anxiety Past Surgical History: none Pertinent Family History: none Last Menstrual Period: 09/05/18 Now: No Reviewed Nursing Documentation: PMH: Agreed; PSxH: Agreed Nursing Documentation-PMH Past Medical History: No History, Except For Hx Cardiac Problems: Yes - SVT Hx Asthma: Yes History Of Psychiatric Problem: Yes - Anxiety, Depression Hx Neurological Problems: No Review of Systems All Other Systems: negative except mentioned in HPI Physical Exam Vital Signs Date Time Temp Pulse Resp B/P (MAP) Pulse Ox O2 Delivery O2 Flow Rate FiO2 09/24/18 16:51 98.2 68 20 106/71 97 Room Air Sp02 EP Interpretation: reviewed, normal General Appearance: no apparent distress, alert, GCS 15, non-toxic Head: normocephalic, atraumatic Eyes: bilateral eye normal inspection, bilateral eye PERRL ENT: hearing grossly normal, normal voice Neck: full range of motion Respiratory: lungs clear, normal breath sounds, speaking full sentences Cardiovascular #1: regular rate, rhythm Musculoskeletal: back normal, gait/station normal, normal range of motion, non- tender Neurologic: alert, oriented x3, responsive, motor strength/tone normal, sensory intact, speech normal, grossly normal Psychiatric: judgement/insight normal Skin: normal color, no rash, warm/dry, well hydrated Medical Decision Making PA Attestation Dr. alves is my supervising Physician whom patient management has been discussed with. Diagnostic Impression: Primary Impression: Medication refill ER Course 23-year-old female presents to the emergency department complaining of need for medication refill of gabapentin. Patient reports she took her last pill today she states that she regularly he takes it twice a day and is prescribed by her PCP. Patient reports she takes a for history of anxiety and for sleep. she states that she has been titrating down from 600 mg. Patient denies history of seizures or any other significant past medical history. Reports hx of depression for which she takes Paxil for. Denies CP, Palpitations, LOC, AMS, dizziness, Changes in Vision, Sensation, paresthesias, or a sudden severe headache. Denies SI/HI, PSA's, Delusions, Hallucinations, previous psychiatric hospitalizations or trials of psychiatric medications other than Paxil. Ddx considered but are not limited to: acute psychosis, danger to self or others , drug seeking, OD, urgent need for medication refill request, non -urgent medication refill request just to name a few. Vital signs: are WNL, pt. is afebrile H&PE are most consistent with non- urgent need for medication refill. Pt. does not have evidence to suggest high probability of danger to self or others. pt. is Alert, Oriented, and able to make decisions. ORDERS: none required at this time, the diagnosis is clinical ED INTERVENTIONS: None required at this time. - I called the pharmacy's number on her most recent rx bottel and spoke with the pharmacist to verify that patient is regularly rx'd this medication on a monthly basis. This was in fact correct. Pt. given temporary refill for 4 days of requested medication. DISCHARGE: At this time pt. is stable for d/c to home. Will provide printed patient care instructions, and any necessary prescriptions. Care plan and follow up instructions have been discussed with the patient prior to discharge. Last Vital Signs Date Time Temp Pulse Resp B/P (MAP) Pulse Ox O2 Delivery O2 Flow Rate FiO2 09/24/18 16:58 98.2 68 20 106/71 97 Room Air Disposition: HOME, SELF-CARE Condition: Stable Scripts Gabapentin* (GABAPENTIN*) 300 Mg Capsule 300 MG ORAL BID for 4 Days, #8 CAP 0 Refills Prov: Gita Dunaway 09/24/18 Patient Instructions: Medicine Refill at the Emergency Department Additional Instructions: Take medications as directed. Follow up with a Primary Care Provider in 3 days, for a full prescription refill Return sooner to ED if new symptoms occur, or current symptoms become worse. Do not drink alcohol, drive, use marijuana products or operate heavy machinery while taking Gabapentin as this may cause drowsiness. - Please note that this Emergency Department Report was dictated using [employer] driving technician technology software, occasionally this can lead to erroneous entry secondary to interpretation by the dictation equipment. Gita Dunaway Sep 24, 2018 17:18
== END | disposition home or self-care (01) ==
LOC: EMR 17:20
DX: Z76.0 Encounter for issue of repeat prescription (principal); F41.8 Other specified anxiety disorders; I47.1 Supraventricular tachycardia; J45.909 Unspecified asthma, uncomplicated
CPT/HCPCS: 99282

== ENCOUNTER 2020-02-26 14:02 | Emergency (ER) | payer BC ==
[~2020-02-26] VITALS: Ht 167.6 cm; Wt 65.8 kg
[2020-02-26 14:13] VITALS: BP 139/90
--- NOTE | 2020-02-26 14:13 | NUR ---
ED Nurse Note: Patient walked in to ED from home c/o bilateral neck pain x 1 day. Pt also c/o on and off headache x 1 month. Reports feeling of tightness on the face and neck. Denies fall/ trauma. Not in any distress. VSS.
--- NOTE | 2020-02-26 14:37 | NUR ---
ED Nurse Note: Blood and urine specimen collected and sent to lab.
--- NOTE | 2020-02-26 14:44 | Emergency Room Report ---
History of Present Illness General Chief Complaint: Neck Pain Source: Patient Present Illness HPI 34 YO female presents to the ED c/o 06/06 in severity neck pain bilaterally. Pt. reports diffuse CARVAJAL x 1 month. She reports feeling tightness in the face and neck that has been progressive x 1 week. Pt. denies sudden onset. She denies trauma or fall. She reports she has been seeing a chiropractor without relief of her symptoms. She reports hx of anxiety and panic attacks. She reports recent significant traumatic event with the unexpected loss of her best friend via suicide. PT. reports has not been able to make PCP appt. due to current pandemic. She reports some mild relief with IBU just recently. She denies difficulty or pain with swallowing. She reports hx of SVT. She reports increased anxiety and shakiness/uneasiness. She reports frequent episodes of spontaneous eye twitching. She denies seizures, syncope or LOC. pt. denies drug or ETOH use. She reports being a daily smoker. She denies CP, SOB, palpitations or paresthesias. She denies muscular weakness. She reports familial hx of thyroid dysfunction. She states she has never been examined for thyroid issues. She denies night sweats, significant changes in weight or loss of vision/ blurry vision. She denies head trauma. She denies taking blood thinning medications. Allergies: Coded Allergies: No Known Allergies (Unverified , 01/07/14) COVID-19 Screening Contact w/high risk pt: No Recent Travel to affected area: No Experienced COVID-19 symptoms?: No COVID-19 Testing performed SERVICE AIDE: No Patient History Past Medical History: see triage record Past Surgical History: other - tonsillectomy Pertinent Family History: other - thyroid disorder Last Menstrual Period: 02/09/20 Now: No Reviewed Nursing Documentation: PMH: Agreed; PSxH: Agreed Nursing Documentation-PMH Past Medical History: No History, Except For Hx Cardiac Problems: Yes - SVT Hx Asthma: Yes Hx Neurological Problems: Yes - Panic attacks Review of Systems All Other Systems: negative except mentioned in HPI Physical Exam Vital Signs Date Time Temp Pulse Resp B/P (MAP) Pulse Ox O2 Delivery O2 Flow Rate FiO2 02/26/20 14:05 98.8 77 16 139/90 (106) 100 Room Air Sp02 EP Interpretation: reviewed, normal General Appearance: no apparent distress, alert, GCS 15, non-toxic Head: normocephalic, atraumatic Eyes: bilateral eye normal inspection, bilateral eye PERRL, bilateral eye other - no photophobia. visual field is equal to examiners ENT: hearing grossly normal, normal voice Neck: full range of motion, thyroid normal - per limited palpation, no bony tend, tender lateral - Bilateral left > right. no spinous process ttp. Respiratory: chest non-tender, lungs clear, normal breath sounds, speaking full sentences Cardiovascular #1: regular rate, rhythm, normal capillary refill Cardiovascular #2: 2+ radial (R), 2+ radial (L) Musculoskeletal: decreased range of motion - secondary to pain, pain greater with forward flexion of the neck, normal range of motion, gait/station normal, non-tender Neurologic: alert, motor strength/tone normal, distal neuro normal, oriented x3 , sensory intact, responsive, speech normal, grossly normal, no focal defects - negative for nystagmus as well., other - negative younger's. Psychiatric: judgement/insight normal, anxious Skin: no rash, normal color Lymphatic: no adenopathy Medical Decision Making PA Attestation Dr. Plunkett is my supervising Physician whom patient management has been discussed with. Diagnostic Impression: Primary Impression: Neck pain Additional Impression: Dilutional hyponatremia ER Course 34 YO female presents to the ED c/o 06/06 in severity neck pain bilaterally. Pt. reports diffuse CARVAJAL x 1 month. She reports feeling tightness in the face and neck that has been progressive x 1 week. Pt. denies sudden onset. She denies trauma or fall. She reports she has been seeing a chiropractor without relief of her symptoms. She reports hx of anxiety and panic attacks. She reports recent significant traumatic event with the unexpected loss of her best friend via suicide. PT. reports has not been able to make PCP appt. due to current pandemic. She reports some mild relief with IBU just recently. She denies difficulty or pain with swallowing. She reports hx of SVT. She reports increased anxiety and shakiness/uneasiness. She reports frequent episodes of spontaneous eye twitching. She denies seizures, syncope or LOC. pt. denies drug or ETOH use. She reports being a daily smoker. She denies CP, SOB, palpitations or paresthesias. She denies loss of vision, floaters or decreased visual field. She denies muscular weakness. She reports familial hx of thyroid dysfunction. She states she has never been examined for thyroid issues. She denies night sweats, significant changes in weight or loss of vision/ blurry vision. She denies head trauma. She denies taking blood thinning medications. Ddx considered but are not limited to hyper/hypo thyroid disorder, CRISELDA/panic disorder, vertebral artery dissection, muscle spasm, Mnire's, BPPV, labyrinthitis, cerebellar stroke, hypovolemia, or cardiac cause. Vital signs: are WNL, pt. is afebrile H&PE are most consistent with: bilateral SCM muscle spasms and tension CARVAJAL's. due to pt. with recent chiropractic work pt. requires more thorough work-up to r/o vertebral artery dissection is needed. No focal deficit to indicate TIA or CVA. No vertical nystagmus. ORDERS: -CT head no contrast & CTA neck -- unremarkable other than prominent larynx and tonsils -CMP: hyponatremia of 128 --- d/w pt. she admits to having increased water intake lately. -CBC WNL -Hcg: negative UDS: All negative UA: WNL TSH, T3/T4: WNL/unremarkable ED INTERVENTIONS: - Robaxin PO -D/w pt. CT results. Pt. reports She had her tonsils removed, She reiterates/ reports pain is not inside her throat its on the bilateral sides of her neck. -Better after Robaxin PO. Because of lack of focality and red flags Pt. is stable for further evaluation and management as an outpatient DISCHARGE: At this time pt. is stable for d/c to home. Will provide printed patient care instructions, and any necessary prescriptions. Care plan and follow up instructions have been discussed with the patient prior to discharge. Labs Test 02/26/20 14:15 02/26/20 14:43 Urine Color Pale yellow Urine Appearance Clear Urine pH 6.5 (4.5-8.0) Urine Specific [place] 1.005 (1.005-1.035) Urine Protein Negative (NEGATIVE) Urine Glucose (UA) Negative (NEGATIVE) Urine Ketones Negative (NEGATIVE) Urine Blood Negative (NEGATIVE) Urine Nitrite Negative (NEGATIVE) Urine Bilirubin Negative (NEGATIVE) Urine Urobilinogen Normal MG/DL (0.0-1.0) Urine Leukocyte Esterase Negative (NEGATIVE) Urine RBC 0 /HPF (0 - 2) Urine WBC 0 /HPF (0 - 2) Urine Squamous Epithelial Cells Occasional /LPF Urine Bacteria Occasional /HPF (NONE) Urine HCG, Qualitative Negative (NEGATIVE) Urine Opiates Screen Negative (NEGATIVE) Urine Barbiturates Screen Negative (NEGATIVE) Phencyclidine (PCP) Screen Negative (NEGATIVE) Urine Amphetamines Screen Negative (NEGATIVE) Urine Benzodiazepines Screen Negative (NEGATIVE) Urine Cocaine Screen Negative (NEGATIVE) Urine Marijuana (THC) Screen Negative (NEGATIVE) White Blood Count 7.4 K/UL (4.8-10.8) Red Blood Count 3.79 M/UL (4.20-5.40) Hemoglobin 12.7 G/DL (12.0-16.0) Hematocrit 34.7 % (37.0-47.0) Mean Corpuscular Volume 92 FL (80-99) Mean Corpuscular Hemoglobin 33.6 PG (27.0-31.0) Mean Corpuscular Hemoglobin Concent 36.6 G/DL (32.0-36.0) Red Cell Distribution Width 10.7 % (11.6-14.8) Platelet Count 179 K/UL (150-450) Mean Platelet Volume 7.4 FL (6.5-10.1) Neutrophils (%) (Auto) 59.4 % (45.0-75.0) Lymphocytes (%) (Auto) 26.9 % (20.0-45.0) Monocytes (%) (Auto) 8.0 % (1.0-10.0) Eosinophils (%) (Auto) 4.6 % (0.0-3.0) Basophils (%) (Auto) 1.1 % (0.0-2.0) Sodium Level 128 MMOL/L (136-145) Potassium Level 3.6 MMOL/L (3.5-5.1) Chloride Level 93 MMOL/L (98-107) Carbon Dioxide Level 28 MMOL/L (21-32) Anion Gap 7 mmol/L (5-15) Blood Urea Nitrogen 15 mg/dL (7-18) Creatinine 0.8 MG/DL (0.55-1.30) Estimat Glomerular Filtration Rate > 60 mL/min (>60) Glucose Level 96 MG/DL (74-106) Calcium Level 8.6 MG/DL (8.5-10.1) Thyroid Stimulating Hormone (TSH) 1.262 uiU/mL (0.358-3.740) Free Thyroxine 0.99 NG/DL (0.76-1.46) Free Triiodothyronine 2.3 pg/mL (2.3-4.2) CT/MRI/US Diagnostic Results CT/MRI/US Diagnostic Results #1: Imaging Test Ordered: CT Head No contrast Impression " Impression: Negative " --Per official radiology report- Please see report for specific details. CT/MRI/US Diagnostic Results #2: Imaging Test Ordered: CTA Neck Impression "No evidence of significant extra cranial cerebrovascular insufficiency or other abnormality. Prominent tonsils and larynx. Inflammation possible. Correlate with clinical findings." --Per official radiology report- Please see report for specific details. Last Vital Signs Date Time Temp Pulse Resp B/P (MAP) Pulse Ox O2 Delivery O2 Flow Rate FiO2 02/26/20 14:13 98.8 77 16 139/90 100 Room Air Disposition: HOME, SELF-CARE Condition: Stable Scripts Naproxen* (NAPROXEN*) 500 Mg Tablet 500 MG ORAL TWICE A DAY for 7 Days, #14 TAB Prov: Gita Dunaway 02/26/20 Methocarbamol* (ROBAXIN-750*) 750 Mg Tablet 750 MG PO QID, #28 TAB 0 Refills Prov: Gita Dunaway 02/26/20 Referrals: [facility]el [facility] Patient Instructions: Hyponatremia, [id number], Muscle Cramps and Spasms, [id number] Additional Instructions: Take medications as directed. !!Do not drink alcohol, drive, or operate heavy machinery while taking ROBAXIN ( Muscle Relaxer) as this may cause drowsiness. Reduce excessive water intake. Consider beverages that have electrolytes such as diluted Gatorade. Repeat blood work is recommended by her primary care provider. Follow up with a Primary Care Provider in 3-5 days, even if your symptoms have resolved. If symptoms persist additional evaluation and/or physical therapy may be of benefit. --Please review list of primary care clinics, if you do not already have a primary care provider Return sooner to ED if new symptoms occur, or current symptoms become worse. - Please note that this Emergency Department Report was dictated using [employer]-dorfacing slitter technology software, occasionally this can lead to erroneous entry secondary to interpretation by the dictation equipment. Gita Dunaway Feb 26, 2020 14:44
[2020-02-26] MEDS ORDERED: Methocarbamol 500mg tab ORAL ONE (14:45)
[2020-02-26 14:50] LABS: APPEARANCE,URINE CLEAR; BILIRUBIN, URINE NEGATIVE (NEGATIVE); COLOR,URINE PALE YELLOW; GLUCOSE, URINE (UA) NEGATIVE (NEGATIVE); KETONES,URINE NEGATIVE (NEGATIVE); LEUKOCYTE ESTERASE ,URINE NEGATIVE (NEGATIVE); NITRITE,URINE NEGATIVE (NEGATIVE); PH,URINE 6.5 (4.5-8.0); PROTEIN,URINE NEGATIVE (NEGATIVE); UROBILINOGEN,URINE NORMAL MG/DL (0.0-1.0)
[2020-02-26] MEDS ORDERED: Omnipaque 350 100ml vial INJ PRN (15:00)
[2020-02-26 15:11] LABS: BASOPHILS % (AUTO) 1.1 % (0.0-2.0); EOSINOPHILS % (AUTO) 4.6 % (0.0-3.0); HEMATOCRIT 34.7 % (37.0-47.0); HEMOGLOBIN 12.7 G/DL (12.0-16.0); LYMPHOCYTES % (AUTO) 26.9 % (20.0-45.0); MEAN CORPUSCULAR VOLUME 92 FL (80-99); NEUTROPHILS % (AUTO) 59.4 % (45.0-75.0); PLATELET COUNT 179 K/UL (150-450); RED BLOOD COUNT 3.79 M/UL (4.20-5.40); RED CELL DISTRIBUTION WIDTH 10.7 % (11.6-14.8); WHITE BLOOD COUNT 7.4 K/UL (4.8-10.8)
[2020-02-26 15:20] LABS: ANION GAP 7 mmol/L (5-15); BLOOD UREA NITROGEN 15 mg/dL (7-18); CALCIUM 8.6 MG/DL (8.5-10.1); CARBON DIOXIDE 28 MMOL/L (21-32); CHLORIDE 93 MMOL/L (98-107); CREATININE 0.8 MG/DL (0.55-1.30); POTASSIUM 3.6 MMOL/L (3.5-5.1); SODIUM 128 MMOL/L (136-145)
--- NOTE | 2020-02-26 16:05 | NUR ---
ED Nurse Note: Pt was taken to CT via wc, accompanied by a tech.
--- NOTE | 2020-02-26 16:22 | NUR ---
ED Nurse Note: Pt returned from CT, not in any distress.
--- NOTE | 2020-02-26 17:02 | Diagnostic Imaging Report ---
ndication: Reason For Exam: PAIN Technique: IV administration nonionic contrast. Arterial phase spiral acquisition obtained through the neck. Multiplanar and 3-D reconstructions were generated. Total dose length product 186 mGycm. CTDIvol(s) one, 59, 50 mGy. Dose reduction achieved using automated exposure control Comparison: none Findings: Unremarkable aortic arch. Classic branching anatomy of the great neck vessels. Patent nonstenotic right brachiocephalic, right common and proximal internal carotid arteries. Patent and nonstenotic right proximal subclavian artery. Patent nonstenotic left proximal subclavian artery. Codominant nonstenotic bilateral vertebral arteries. Patent nonstenotic left common and internal carotid arteries. No evidence of significant arterial injury. No evidence of dissection or pseudoaneurysm. The included lung apices are clear. The included upper mediastinum is unremarkable. The thyroid is unremarkable. No cervical mass or adenopathy. Visualized orbits and sinuses are unremarkable. There is prominence to the bilateral tonsils. There is questionable thickening of the larynx. Impression: No evidence of significant extra cranial cerebrovascular insufficiency or other abnormality Prominent tonsils and larynx. Inflammation possible. Correlate with clinical findings. Findings discussed by phone with Gita in the emergency room at the time of interpretation The CT scanner at [facility] is accredited by the [employer] and the scans are performed using protocols designed to limit radiation exposure to as low as reasonably achievable to attain images of sufficient resolution adequate for diagnostic evaluation.
--- NOTE | 2020-02-26 17:05 | Diagnostic Imaging Report ---
Indications: Headache Technique: Spiral acquisitions obtained through the brain. Angled axial and coronal 5 x 5 mm slices were reconstructed. Total dose length product 1034 mGycm. CTDI vol(s) 53 mGy. Dose reduction achieved using automated exposure control Comparison: None. Findings: No acute intracranial hemorrhage or edema. No mass effect nor midline shift. Normal size ventricles and extra-axial CSF spaces. Normal lovett-white differentiation. Visualized orbits and sinuses are unremarkable. The mastoids are clear. The calvarium is intact. Impression: Negative The CT scanner at [facility] is accredited by the [employer] and the scans are performed using protocols designed to limit radiation exposure to as low as reasonably achievable to attain images of sufficient resolution adequate for diagnostic evaluation.
[2020-02-26] MEDS ORDERED: NAPROXEN500 M2 ORAL (17:34)
[2020-02-26] MEDS ORDERED: ROBAXIN-750750 MG PO (17:34)
[2020-02-26 17:57] VITALS: BP 128/75
--- NOTE | 2020-02-26 17:57 | NUR ---
ED Nurse Note: Pt cleared by ERPA for discharge. DC instructions/prescription was given and explained to pt and verbalized understanding of teachings. All medical deviecs such as ID band and IV line removed. Pt is AAO x4, ambulatory and left with all personal belongings.
== END 2020-02-26 17:57 | disposition home or self-care (01) ==
LOC: EMR 14:50
DX: M54.2 Cervicalgia (principal); E87.1 Hypo-osmolality and hyponatremia; R51 Headache; F17.200 Nicotine dependence, unspecified, uncomplicated; F41.9 Anxiety disorder, unspecified
CPT/HCPCS: 36415; 70450; 70498; 80048; 80307; 81001; 81025; 84439; 84443; 84481; 85025; 99284; Q9967